=== PATIENT | female | born 1960 | race Caucasian/White ===

== ENCOUNTER → 2023-05-20 | Outpatient (CLI) | payer OTHER, SELFPAY ==
--- NOTE | 2023-05-20 11:35 | RAD_ITS ---
INDICATION: KIDNEY STONE EXAMINATION/TECHNIQUE: X-RAY - XR Abdomen 1 View COMPARISON: None FINDINGS: BOWEL GAS PATTERN: Non-obstructive. No bowel or stomach distention. FREE AIR: Not assessed on a single supine view. ORGANOMEGALY: Not seen. CALCIFICATIONS: Several faint calcifications are projecting over the contour of the RIGHT kidney with largest measuring approximately 4.5 cm. There is significant obscuring bowel gas. No calcifications in the pelvis. LOWER CHEST: No acute pathology. BONES AND SOFT TISSUES: No acute pathology. RAD/Abdomen Single View IMPRESSION: 1. Non-obstructive bowel gas pattern. 2. Significant obscuring bowel gas. 3. Several small calcifications are projecting over the region of the RIGHT renal contour with largest measuring approximately 4.5 cm. Electronically Signed: Adi Hernández MD at 21:27 EST ,
== END | disposition home or self-care (01) ==
LOC: RAD 11:27
PROVIDERS: PCP Nurse Practitioner Primary Care; Referring Provider Nurse Practitioner; Visit Provider Nurse Practitioner
DX: N20.0 Calculus of kidney (principal)
CPT/HCPCS: 74018

== ENCOUNTER 2023-06-10 05:44 | Day surgery (SDC) | payer OTHER, SELFPAY ==
--- NOTE | 2023-06-07 07:59 | EKG12_ITS ---
Test Reason : PREOP Blood Pressure : / mmHG Vent. Rate : 057 BPM Atrial Rate : 057 BPM P-R Int : 140 ms QRS Dur : 090 ms QT Int : 408 ms P-R-T Axes : 036 021 012 degrees QTc Int : 397 ms Sinus bradycardia Otherwise normal ECG Confirmed by Bruce Arreola ([id number]), features editor ERNESTO MANUEL ([id number]) on 06/08/2023 7:17:16 AM Referred By: Carlita Mascorro Confirmed By:Bruce Arreola
[2023-06-07 10:26] LABS: Anion Gap 6 (5-15); BUN 18 mg/dL (7-18); BUN/Creat Ratio 20.4 RATIO (10-20); Calcium,Total 9.4 mg/dL (8.5-10.1); Chloride 106 mmol/L (98-107); Creatinine, Serum 0.88 mg/dL (0.55-1.02); EST Glomerular Filtration Rate 69 mL/min (>60); Est Glom Filt Rate - Afr Amer 84 mL/min (>60); Glucose 73 mg/dL (74-106); Potassium 3.8 mmol/L (3.5-5.1); Sodium Level 141 mmol/L (136-145)
[2023-06-10] VITALS (9 sets, daily range): BP systolic 118–162; BP diastolic 58–87; PULSE 56–72; RESP 14–18; TEMP 36.2–36.8; O2SAT 98–100; BMI 32.4
--- OUTSIDE RECORDS SUMMARY | 2023-06-10 05:48 | XMS RPT_ITS | CCD ---
Author Name Unknown Address [address] [place] [address] Organization [facility] Care Team Providers Care Hydro Sprayer Operator Name Role Phone NEFTALI GROVES, SHANTA Primary Care Physician [phone] NEFTALI FORM PRESS OPERATOR-HEATING ENGINEER, SHANTA Attending Unavailabl e BALTES FORM PRESS OPERATOR-HEATING ENGINEER, SHANTA Primary Care Unavailabl e BALTES FORM PRESS OPERATOR-HEATING ENGINEER, SHANTA Attending Unavailabl e BALTES FORM PRESS OPERATOR-HEATING ENGINEER, SHANTA Primary Care Unavailabl e BALTES FORM PRESS OPERATOR-HEATING ENGINEER, SHANTA Primary Care Unavailabl e BALTES FORM PRESS OPERATOR-HEATING ENGINEER, SHANTA Attending Unavailabl e BALTES FORM PRESS OPERATOR-HEATING ENGINEER, SHANTA Primary Care Unavailabl e BALTES FORM PRESS OPERATOR-HEATING ENGINEER, SHANTA Attending Unavailabl e BALTES FORM PRESS OPERATOR-HEATING ENGINEER, SHANTA Primary Care Unavailabl e MELANI HERRERA, GAETANO Massey Attending Unavail able BALTES FORM PRESS OPERATOR-HEATING ENGINEER, SHANTA Attending Unavailabl e BALTES FORM PRESS OPERATOR-HEATING ENGINEER, SHANTA Primary Care Unavailabl e Allergies Allergy Classification Reported Allergen(s) Allergy Type Date of Onset Reaction(s) Facility (1 source) OTHER; Translations: [OTHER] Propensity to adverse reactions (disorder) 10-10-200 1 [facility] (8 sources) Chocolate Food allergy Unknown [facility] (8 sources) Milk Products Food allergy Unknown [facility] Medications Current Medications Medication Drug Class(es) Dates Sig (Normalized) Sig (Original) Soumya 24 Hour Allergy (6 sources) Start: 05-14-19 23 take 1 tablet by mouth once daily as needed Soumya 24 Hour Allergy 1 tab(s), Oral, qDay, PRN allergies, 0 Refill(s) Start Date: 05/14/22 Status: Ordered Zyrtec (8 sources) Histamine-1 Receptor Antagonist Start: 12-26-19 ZyrTEC Dose : 10 mg =, qDay, 0 Refill(s) Start Date: 12/25/16 Status: Ordered Flonase 50 mcg/inh nasal spray (1 source) Start: 12-26-19 take 1 dose nasal route once daily in the morning Flonase 50 mcg/inh nasal spray Dose = 2 spray(s), Nostril, each, qAM, 0 Refill(s) Start Date: 12/25/16 Status: Ordered fluticasone propionate 0.05 mg/actuat metered dose nasal spray (7 sources) Corticosteroid Start: 12-26-19 take 1 dose nasal route once daily in the morning Flonase 50 mcg/inh nasal spray Dose = 2 spray(s), Nostril, each, qAM, 0 Refill(s) Start Date: 12/25/16 Status: Ordered hydroCHLOROthiazide 25 mg oral tablet (8 sources) Thiazide Diuretic Start: 04-07-19 End: 05-22-19 hydroCHLOROthiazide 25 mg oral tablet Dose : 25 mg = 1 tab(s), Oral, qDay, # 90 tab(s), 3 Refill(s), Pharmacy: [id number], Hypertension, 155, cm, 04/22/23 9:33:00 EST, Height, kg, 04/22/23 9:33:00 EST, Dosing Weight Start Date: 04/22/23 Stop Date: 05/22/23 Status: Ordered Problems Problem Classification Problem Date Documented Date Episodic/Chronic Abdominal pain (1 source) Epigastric pain; Translations: [Epigastric pain] Onset: 04-21-2023 Episodic Disorders of lipid metabolism (8 sources) Mixed hyperlipidemia 05-01-2019 Chronic Essential hypertension (10 sources) Hypertensive disorder; Translations: [Essential (primary) hypertension] Onset: 04-22-2023 12-25-2016 Chronic Fluid and electrolyte disorders (8 sources) Hypokalemia 12-25-2016 Episodic Results Test Name Value Interpretation Reference Range Facil ity Vital Signs Date Time Vital Sign Value Performing Clinician Faci lity 04-21-2023 16:15-0500 Diastolic Blood Pressure Non-Invasive 75 mm[Hg] GAETANO POLO MD [facility] 04-21-2023 16:15-0500 Heart rate 54 /min GAETANO POLO MD [facility] 04-21-2023 16:15-0500 Respiratory rate 20 /min GAETANO POLO MD [facility] 04-21-2023 16:15-0500 Systolic Blood Pressure Non-Invasive 120 mm[Hg] GAETANO POLO MD [facility] 04-21-2023 15:10-0500 Diastolic Blood Pressure Non-Invasive 82 mm[Hg] GAETANO POLO MD [facility] 04-21-2023 15:10-0500 Systolic Blood Pressure Non-Invasive 158 mm[Hg] GAETANO POLO MD [facility] 04-21-2023 15:03-0500 Diastolic Blood Pressure Non-Invasive 56 mm[Hg] GAETANO POLO MD [facility] 04-21-2023 15:03-0500 Heart rate 53 /min GAETANO POLO MD [facility] 04-21-2023 15:03-0500 Respiratory rate 18 /min GAETANO POLO MD [facility] 04-21-2023 15:03-0500 Systolic Blood Pressure Non-Invasive 173 mm[Hg] GAETANO POLO MD [facility] 04-21-2023 14:38-0500 Body height 152.4 cm GAETANO POLO MD [facility] 04-21-2023 14:38-0500 Body temperature 98.78 [degF] GAETANO POLO MD [facility] 04-21-2023 14:38-0500 Body weight 84.1 kg GAETANO POLO MD [facility] 04-21-2023 14:38-0500 Heart rate 60 /min GAETANO POLO MD [facility] 04-21-2023 14:38-0500 Respiratory rate 18 /min GAETANO POLO MD [facility] Encounters Encounter Date Encounter Type Care Provider Facility Start: 05-18-2023 End: 05-19-2023 ambulatory SHANTA LINDSAY FORM PRESS OPERATOR-HEATING ENGINEER Facility:B Start: 05-18-2023 End: 05-18-2023 Patient encounter procedure SHANTA LINDSAY FORM PRESS OPERATOR-HEATING ENGINEER [facility] Start: 04-26-2023 End: 04-27-2023 ambulatory SHANTA NEFTALI FORM PRESS OPERATOR-HEATING ENGINEER Facility:[facility] Start: 04-26-2023 End: 04-26-2023 Patient encounter procedure SHANTA NEFTALI FORM PRESS OPERATOR-HEATING ENGINEER [facility] Start: 04-22-2023 End: 04-27-2023 ambulatory SHANTA BALTES FORM PRESS OPERATOR-HEATING ENGINEER Facility:[facility] Start: 04-22-2023 End: 04-26-2023 Outreach Lab SHANTA BALRATNA FORM PRESS OPERATOR-HEATING ENGINEER [facility] Start: 04-21-2023 End: 04-21-2023 Emergency department patient visit SHANTA LINDSAY FORM PRESS OPERATOR-HEATING ENGINEER Facility:[facility] Start: 04-21-2023 End: 04-21-2023 Emergency department patient visit GAETANO POLO MD [facility] Start: 04-16-2023 ambulatory SHANTA LINDSAY FORM PRESS OPERATOR-HEATING ENGINEER Fa cility:B Start: 04-16-2023 End: 04-20-2023 Outreach Lab SHANTA LINDSAY FORM PRESS OPERATOR-HEATING ENGINEER [facility] Start: 04-16-2023 ambulatory SHANTA LINDSAY FORM PRESS OPERATOR-HEATING ENGINEER Fa cility:B Start: 04-16-2023 Encounter for genera l adult medical examination without abnormal findings SHANTA LINDSAY FORM PRESS OPERATOR-HEATING ENGINEER Facility:[facility] Start: 04-16-2023 End: 04-20-2023 Outreach Lab SHANTA LINDSAY FORM PRESS OPERATOR-HEATING ENGINEER [facility] Start: 04-08-2022 End: 04-08-2022 Patient encounter procedure SHANTA LINDSAY FORM PRESS OPERATOR-HEATING ENGINEER [facility] Start: 05-07-2021 End: 05-07-2021 Patient encounter procedure SHANTA LINDSAY FORM PRESS OPERATOR-HEATING ENGINEER [facility] Start: 02-15-2018 End: 02-16-2018 Patient encounter procedure [facility] Procedures Date Procedure Procedure Detail Performing Clinician Start: 12-25-2016 Colonoscopy SHANTA Olea FORM PRESS OPERATOR-HEATING ENGINEER Immunizations Immunization Date Immunization Notes Care Provider Fa cility 01-08-2020 influenza virus vaccine, unspecified formulation SHANTA LINDSAY FORM PRESS OPERATOR-HEATING ENGINEER [facility] 02-01-2019 influenza virus vaccine, unspecified formulation SHANTA LINDSAY FORM PRESS OPERATOR-HEATING ENGINEER [facility] 11-02-2011 tetanus toxoid, redu noah diphtheria toxoid, and acellular pertussis vaccine, adsorbed SHANTA LINDSAY FORM PRESS OPERATOR-HEATING ENGINEER [facility] Payers Date Payer Category Payer Unknown [id number] 1960 Unknown [id number] [id number] [id number] 1960 Unknown [id number] 2.16.8 [id number] 1960 Unknown [id number] 2.16.8 [id number] 1960 Unknown [id number] 2.16.8 [id number] 1960 Unknown [id number] 2.16.8 [id number] 1960 Unknown [id number] 2.16.8 [id number] Social History Date Type Detail Facility Start: 05-01-2019 Never smoked t obacco (finding) [facility] Sex Assigned At Female [facility] Functional Status Date Assessment Result Facility 04-21-2023 Functional Status Independent [facility] 04-21-2023 Functional Status Room check performed [facility] Mental Status Date Assessment Result Facility 04-21-2023 Mental Status Orientation Oriented x 4 [facility] 04-21-2023 Mental Status [facility] Clinical Note 05-18-2023 Note Date & Type Note Facility 05-18-2023 Note ORIGINAL EXAMINATION: 05/18/2023 11:48 am TECHNIQUE: The patient received an intravenous injection of 5.1 mCi of Tc-99m mebrofenin (Choletec). Sequential planar images of the upper abdomen were then acquired over the next 60 minutes. An intravenous infusion of the cholecystokinin (CCK) analogue, Sincalide was then administered followed by an additional period of imaging. Computer quantification of gallbladder emptying was performed. COMPARISON: 04/26/2023 HISTORY: ORDERING SYSTEM PROVIDED HISTORY: Reason for Exam: Positive Song sign, right upper quadrant pain FINDINGS: There is prompt accumulation of activity within the liver and normal subsequent excretion via the biliary ductal system into the small bowel. The gallbladder first visualizes at about 30 minutes after radiopharmaceutical injection and progressively fills. After stimulation, there is further anterograde transit of radiotracer activity into the small bowel. The gallbladder ejection fraction is calculated to be 22 % (normal above 35%). IMPRESSION: 1. No evidence of acute cholecystitis. 2. Reduced gallbladder ejection fraction which can be seen with chronic cholecystitis. 3. Normal hepatic function. I have personally reviewed the images of this examination and agree with the resident's findings and interpretation. Interpreted by: Yohannes Garza DO Preliminary Report By: Fer Tadeo Electronically signed By Yohannes Garza DO Dictated Date: 05/18/2023 1:38:10 PM Prelim Date: 05/18/2023 2:16:49 PM Sign Date: 05/18/2023 2:16:49 PM Ordering Provider: SHANTA LINDSAY [facility] Discharge instructions 04-21-2023 Note Date & Type Note Facility 04-21-2023 Hospital Discharg e instructions Patient Education 04/21/2023 16:12:01 Abdominal Pain, Unknown Cause, Male (Child) Abdominal Pain with Unknown Cause, Male (Child) Abdominal (stomach) pain is common in children. But children often don't complain of pain because they don't have the words to describe what is wrong and they have trouble pinpointing where it hurts. Often, they just feel bad, or don't want to eat. This can make abdominal pain hard to diagnose in young children. Also, abdominal symptoms are associated with many problems. Most of the time, the cause of abdominal pain in children is not serious and will go away. Over the next few days, abdominal pain may come and go or be continuous. It may be hard to decide whether a child has pain or is feeling something else. Other symptoms that may occur include nausea and vomiting, constipation, diarrhea, or fever. Sometimes it can be hard to tell whether a child feels nauseous because he or she just feels bad and doesn't associate that feeling with nausea. The child may constantly touch his or her stomach or indicate pain when the stomach is touched. Abdominal pain may continue even when being treated correctly. Sometimes the cause can become clearer over the next few days and may require other treatment. More tests or medicines may be needed. Home care The healthcare provider may prescribe medicine for pain and symptoms of infection. Follow the instructions for giving these medicines to your child. General care Comfort your child as needed, and give emotional support. Try to find positions that ease your child's discomfort. A small pillow placed on the abdomen may help provide pain relief. Distraction may also help. Some children may be soothed by music or reading. Relaxation techniques and behavioral therapy can be helpful if the pain becomes chronic. Lying down with a warm washcloth on the stomach may help improve symptoms. Have your child sit on the toilet regularly. Don't give medicine for abdominal pain or cramps unless instructed by your healthcare provider. Diet Don't force your child to eat, especially if they are having pain, vomiting, or diarrhea. Think of what would make you feel better or worse, the same probably goes for your child. Water is important to prevent dehydration. Soup, popsicles or oral rehydration solution can help. Give liquids a small amount at a time. Don't let your child guzzle them down. Don't give your child fatty, greasy, spicy, or fried foods Don't give your child dairy products if he has diarrhea. They could make diarrhea worse. Don't give your child high-fiber foods while the pain continues. Don't feed your child large amounts at a time, even if he or she is hungry. Wait a few minutes between bites and offer more if tolerated. Follow-up care Follow up with your child's healthcare provider, or as advised. If tests or studies were done, they will be reviewed by your healthcare provider. You will be told about any new findings that may affect your child s care. Special notes to parents Keep a record of symptoms such as vomiting, diarrhea, or fever. This may help your healthcare provider make a diagnosis. Call 911 Call 911 if any of these occur: Trouble breathing Trouble arousing Fainting or loss of consciousness Rapid heart rate Seizure When to seek medical advice Call your child's healthcare provider right away if any of these occur: Fever (see Fever and children, below) Continuing symptoms such as severe abdominal pain, bleeding, painful or bloody urination, nausea and vomiting, constipation, or diarrhea Abdominal swelling Painful, swollen, or inflamed scrotum If your child can't keep down water or clear liquids, he or she is at risk of dehydration and needs medical attention right away. Severe pain lasting more than 1 hour Constant pain lasting more than 2 hours Crampy, intermittent pain lasting more than 24 hours Pain in the lower right side of the abdomen Your child starts acting very sick Fever and children Always use a digital thermometer to check your child s temperature. Never use a mercury thermometer. For infants and toddlers, be sure to use a rectal thermometer correctly. A rectal thermometer may accidentally poke a hole in (perforate) the rectum. It may also pass on germs from the stool. Always follow the product maker s directions for proper use. If you don t feel comfortable taking a rectal temperature, use another method. When you talk to your child s healthcare provider, tell him or her which method you used to take your child s temperature. Here are guidelines for fever temperature. Ear temperatures aren t accurate before 6 months of age. Don t take an oral temperature until your child is at least 4 years old. under 3 months old: Ask your child s healthcare provider how you should take the temperature. Rectal or forehead (temporal artery) temperature of 100.4 F (38 C) or higher, or as directed by the provider Armpit temperature of 99 F (37.2 C) or higher, or as directed by the provider Child age 3 to 36 months: Rectal, forehead (temporal artery), or ear temperature of 102 F (38.9 C) or higher, or as directed by the provider Armpit temperature of 101 F (38.3 C) or higher, or as directed by the provider Child of any age: Repeated temperature of 104 F (40 C) or higher, or as directed by the provider Fever that lasts more than 24 hours in a child under 2 years old. Or a fever that lasts for 3 days in a child 2 years or older. [id number] [employer]. [address] [place] [address], [place] [address]. All rights reserved. This information is not intended as a substitute for professional medical care. Always follow your healthcare professional's instructions. 04/21/2023 16:03:24 Epigastric Pain (Uncertain Cause) Epigastric Pain (Uncertain Cause) Epigastric pain is pain in the upper abdomen. It can be a sign of disease. Common causes include: Acid reflux (stomach acid flowing up into the esophagus) Gastritis (irritation of the stomach lining) Most often this is from aspirin or NSAID medicines such as ibuprofen, bacteria called H. pylori, or frequent alcohol use. Peptic ulcer disease Inflammation of the pancreas Gallstone Infection in the gallbladder Pain may be dull or burning. It may spread upward to the chest or to the back. There may be other symptoms such as belching, bloating, cramps or hunger pains. There may be weight loss or poor appetite, nausea or vomiting. Since the cause of your pain is not certain yet,you may need more tests. Sometimes the doctor will treat you for the most likely condition to see if there is improvement before doing more tests. Home care Medicines Antacids help neutralize the normal acids in your stomach.If you don t like the liquid, you can try a chewable one. You may find one works better than another for you. Overuse can cause diarrhea or constipation. Acid blockers (H2 blockers) decrease acid production. Examples are cimetidine, famotidine, and ranitidine. Acid inhibitors (PPIs) decrease acid production in a different way than the blockers. You may find they work better, but can take a little longer to take effect. Examples are omeprazole, lansoprazole, pantoprazole, rabeprazole, and esomeprazole. Many of these are available [id number] or available as generics. Take an antacid 30 to 60 minutes after eating and at bedtime, but not at the same time as an acid kaci. Try not to take NSAIDs such as ibuprofen. Aspirin may also cause problems, but if taking it for your heart or other medical reasons, talk to your doctor before stopping it; you don't want to cause a worse problem, like a heart attack or stroke. Diet If certain foods seem to cause your pain, try not to eat them. Certain foods can worsen symptoms of gastritis. Limit or avoid fatty, fried, and spicy foods, as well as coffee, chocolate, mint, and foods with high acid content such as tomatoes and citrus fruit and juices (orange, grapefruit, lemon). Eat slowly and chew food well before swallowing. Symptoms of gastritis can be worsened by certain foods. Don't drink alcohol. It can irritate the stomach. Don't consume caffeine, or use tobacco. These can delay healing and worsen your problem. Try eating smaller meals with snacks in between. Keep an empty stomach for 2 to 3 hours before lying down. Prop the head of the bed up if you have overnight symptoms. This helps acid clear from your esophagus. Follow-up care Follow up with your healthcare provider or as advised. When to seek medical advice Call your healthcare provider right away if any of the following occur: Stomach pain worsens or moves to the right lower part of the abdomen Chest pain appears, or if it worsens or spreads to the chest, back, neck, shoulder, or arm Frequent vomiting (can t keep down liquids) Blood in the stool or vomit (red or black color) Feeling weak or dizzy, fainting, or having trouble breathing Fever of 100.4 F (38 C) or higher, or as directed by your healthcare provider Abdominal swelling [id number] [employer] [address] [place] [address]. All rights reserved. This information is not intended as a substitute for professional medical care. Always follow your healthcare professional's instructions. Follow Up Care 04/21/2023 14:30:33 With:SHANTA LINDSAY Address: [address] [place] [phone] When:2-4 days [facility] Clinical Note 04-21-2023 Note Date & Type Note Facility 04-21-2023 Note Discharge Instructions Thank you for allowing [facility] to assist you with your healthcare needs. The following is important discharge information regarding your hospital visit. Diagnosis from Today's Visit Abdominal pain Epigastric pain What to Do Next Instructions from Your Care Team You were started on a medication for acid reflux today. Your labs were normal in the emergency department. You should discuss with your family doctor obtaining an outpatient ultrasound of your gallbladder if your symptoms continue. No qualifying data available. Post Acute Orders No qualifying data available. You Need to Schedule the Following Appointments Follow Up with SHANTA LINDSAY When Within 2-4 days Where: [address] [place] [address] [place] [phone]- [phone] Allergies Chocolate (Unknown) Milk Products (Unknown) Medications Please ask your primary doctor or pharmacist before taking any other medication not listed, including over the counter drugs, herbal medications, vitamins and or supplements as they may interact with your home medications. What How Much When Why Instructions Last Dose New pantoprazole (Protonix 20 mg oral enteric coated tablet) 1 tab(s) by mouth Once a day Printed Prescription Unchanged cetirizine (ZyrTEC) 10 Milligram Once a day Unchanged cholecalciferol (Vitamin D3) 2,000 unit(s) by mouth Every day Unchanged fexofenadine (Soumya 24 Hour Allergy) 1 tab(s) by mouth Once a day as needed for allergies Unchanged fluticasone nasal (Flonase 50 mcg/ inh nasal spray) 2 spray(s) each nostril Once a day (in the morning) Unchanged hydroCHLOROthiazide (hydroCHLOROthiazide 25 mg oral tablet) 1 tab(s) by mouth Once a day Hypertension Duration: 30 Days Unchanged multivitamin (Multivitamin) 1 tab(s) by mouth Every day Unchanged potassium citrate (potassium citrate 10 mEq oral tablet, extended release) 1 tab(s) by mouth Every day History of kidney stones Unchanged zinc gluconate (zinc (as gluconate) 50 mg oral tablet) 1 tab(s) by mouth Every other day Please take this list to your next doctor s visit. Bring all medications you take, including over the counter medications, herbals and other supplements with you to your doctor s visit. Patients and families are reminded to discard old lists and to update any records with all medication providers or retail pharmacies. Medication Leaflets pantoprazole (oral/injection) (brady LEO pra zoledis) First-Pantoprazole, Protonix, Protonix IV What is the most important information I should know about pantoprazole? Pantoprazole can cause kidney problems or new or worsening symptoms of lupus. Tell your doctor if you have: pain in your side or lower back, painful urination, blood or pus in your urine, joint pain or a skin rash on your cheeks or arms that worsens in sunlight. This medicines can cause diarrhea. Tell your doctor if you have diarrhea that is watery or bloody. You may be more likely to have a broken bone while using pantoprazole. Talk with your doctor about ways to keep your bones healthy. What is pantoprazole? Pantoprazole is used to promote healing of erosive esophagitis (damage to your esophagus caused by stomach acid) in adults and children who are at least 5 years old. Pantoprazole is also used in adults to treat the symptoms of gastroesophageal reflux disease (GERD) and other conditions involving excessive stomach acid such as Bernie-Ernst syndrome. Pantoprazole may also be used for purposes not listed in this medication guide. What should I discuss with my healthcare provider before using pantoprazole? You should not use pantoprazole if you are allergic to it, or if you have: breathing problems; or you are allergic to any other stomach acid medicine such as lansoprazole, rabeprazole, esomeprazole, omeprazole, and others. Some drugs should not be used with pantoprazole. Your treatment plan may change if you also use any medication that contains rilpivirine. Tell your doctor if you have or have ever had: a zinc deficiency; an electrolyte imbalance (such as low blood levels of potassium, calcium or magnesium); lupus; or liver or kidney disease. You may be more likely to have a broken bone while using pantoprazole. Talk with your doctor about ways to keep your bones healthy. Pantoprazole may harm an unborn baby. Tell your doctor if you are or plan to become . Ask a doctor if it is safe to breastfeed while using this medicine. How should I use pantoprazole? Follow all directions on your prescription label and read all medication guides or instruction sheets. Never use pantoprazole in larger amounts, or for longer than prescribed. Do not change your dose or stop using this medication without your doctor's advice. Avoid medication errors by using exactly as directed on the label, or as prescribed by your doctor. Pantoprazole is taken by mouth or given as an infusion into a vein. Pantoprazole tablets are taken by mouth, with or without food. Pantoprazole oral granules should be taken 30 minutes before a meal. Swallow the tablet whole and do not crush, chew, or break it. Read and carefully follow instructions for mixing and taking the oral granules. The oral granules can also be given through a nasogastric tube. Ask your doctor or pharmacist if you do not understand these instructions. Shake the oral suspension (liquid). Measure a dose with the supplied measuring device (not a kitchen spoon). Use this medicine for the full prescribed length of time, even if your symptoms quickly improve. You may use antacids if needed while you are taking pantoprazole tablets. Call your doctor if your symptoms do not improve, or if they get worse after using the medicine for the number of days prescribed. You may need medical tests. This medicine can affect the results of certain medical tests. Tell any doctor or laboratory staff that you are using pantoprazole. This medicine can cause diarrhea. Tell your doctor if you have diarrhea that is watery or bloody. Store pantoprazole tablet and oral granules at room temperature away from moisture and heat. Store the oral suspension tightly closed in a refrigerator. Do not freeze and protect from light. Throw the medicine away after 30 days, even if there is still medicine left inside. What happens if I miss a dose? Use the medicine as soon as you can, but skip the missed dose if it is almost time for your next dose. Do not use two doses at one time. What happens if I overdose? Seek emergency medical attention or call the Poison Help line at . What should I avoid while using pantoprazole? Follow your doctor's instructions about any restrictions on food, beverages, or activity. Avoid getting pantoprazole oral suspension in your eyes. If contact does occur, rinse with water. What are the possible side effects of pantoprazole? Get emergency medical help if you have signs of an allergic reaction (hives, difficult breathing, swelling in your face or throat) or a severe skin reaction (fever, sore throat, burning eyes, skin pain, red or purple skin rash with blistering and peeling). Seek medical treatment if you have a serious drug reaction that can affect many parts of your body. Symptoms may include skin rash, fever, swollen glands, muscle aches, severe weakness, unusual bruising, or yellowing of your skin or eyes. Call your doctor at once if you have: severe stomach pain, diarrhea that is watery or bloody; nausea, vomiting, weight loss; sudden pain or trouble moving your hip, wrist, or back; pain, swelling, burning, or irritation around the IV needle; pain in your side or lower back, painful urination, blood or pus in your urine; signs of an electrolyte imbalance--increased thirst or urination, constipation, muscle weakness, leg cramps, numbness or tingling, feeling jittery, fluttering in your chest; new or worsening symptoms of lupus--joint pain, and a skin rash on your cheeks or arms that worsens in sunlight; or vitamin B12 deficiency--shortness of breath, feeling lightheaded, irregular heartbeats, muscle weakness, pale skin, tiredness, mood changes, numbness or tingling in your legs or arms. Long-term use of pantoprazole may increase your risk of serious side effects including stomach polyps. Talk with your doctor about these risks. Common side effects may include: headache, dizziness; stomach pain, gas, nausea, vomiting, diarrhea; joint pain; or fever, rash, or cold symptoms such as stuffy nose, sneezing, sore throat. This is not a complete list of side effects and others may occur. Call your doctor for medical advice about side effects. You may report side effects to FDA at 6-669-YDM-3589. What other drugs will affect pantoprazole? Tell your doctor about all your other medicines, especially: digoxin; methotrexate; or a diuretic or 'water pill'. This list is not complete. Other drugs may affect pantoprazole, including prescription and wmty-gad-mjzamuz medicines, vitamins, and herbal products. Not all possible drug interactions are listed here. Where can I get more information? Your doctor or pharmacist can provide more information about pantoprazole. Remember, keep this and all other medicines out of the reach of children, never share your medicines with others, and use this medication only for the indication prescribed. Every effort has been made to ensure that the information provided by [employer]. ('[employer]') is accurate, up-to-date, and complete, but no guarantee is made to that effect. Drug information contained herein may be time sensitive. [employer] information has been compiled for use by healthcare practitioners and consumers in the [place] and therefore [employer] does not warrant that uses outside of the [place] are appropriate, unless specifically indicated otherwise. [employer]'s drug information does not endorse drugs, diagnose patients or recommend therapy. [employer] drug information is an informational resource designed to assist licensed healthcare practitioners in caring for their patients and/or to serve consumers viewing this service as a supplement to, and not a substitute for, the expertise, skill, knowledge and judgment of healthcare practitioners. The absence of a warning for a given drug or drug combination in no way should be construed to indicate that the drug or drug combination is safe, effective or appropriate for any given patient. [facility] does not assume any responsibility for any aspect of healthcare administered with the aid of information [facility] provides. The information contained herein is not intended to cover all possible uses, directions, precautions, warnings, drug interactions, allergic reactions, or adverse effects. If you have questions about the drugs you are taking, check with your doctor, nurse or pharmacist. Copyright 0353-6025 [employer]. Version: 22.. Revision Date: 03/10/2023. Education Materials Epigastric Pain (Uncertain Cause) Epigastric pain is pain in the upper abdomen. It can be a sign of disease. Common causes include: Acid reflux (stomach acid flowing up into the esophagus) Gastritis (irritation of the stomach lining) Most often this is from aspirin or NSAID medicines such as ibuprofen, bacteria called H. pylori, or frequent alcohol use. Peptic ulcer disease Inflammation of the pancreas Gallstone Infection in the gallbladder Pain may be dull or burning. It may spread upward to the chest or to the back. There may be other symptoms such as belching, bloating, cramps or hunger pains. There may be weight loss or poor appetite, nausea or vomiting. Since the cause of your pain is not certain yet,you may need more tests. Sometimes the doctor will treat you for the most likely condition to see if there is improvement before doing more tests. Home care Medicines Antacids help neutralize the normal acids in your stomach.If you don t like the liquid, you can try a chewable one. You may find one works better than another for you. Overuse can cause diarrhea or constipation. Acid blockers (H2 blockers) decrease acid production. Examples are cimetidine, famotidine, and ranitidine. Acid inhibitors (PPIs) decrease acid production in a different way than the blockers. You may find they work better, but can take a little longer to take effect. Examples are omeprazole, lansoprazole, pantoprazole, rabeprazole, and esomeprazole. Many of these are available [id number] or available as generics. Take an antacid 30 to 60 minutes after eating and at bedtime, but not at the same time as an acid kaci. Try not to take NSAIDs such as ibuprofen. Aspirin may also cause problems, but if taking it for your heart or other medical reasons, talk to your doctor before stopping it; you don't want to cause a worse problem, like a heart attack or stroke. Diet If certain foods seem to cause your pain, try not to eat them. Certain foods can worsen symptoms of gastritis. Limit or avoid fatty, fried, and spicy foods, as well as coffee, chocolate, mint, and foods with high acid content such as tomatoes and citrus fruit and juices (orange, grapefruit, lemon). Eat slowly and chew food well before swallowing. Symptoms of gastritis can be worsened by certain foods. Don't drink alcohol. It can irritate the stomach. Don't consume caffeine, or use tobacco. These can delay healing and worsen your problem. Try eating smaller meals with snacks in between. Keep an empty stomach for 2 to 3 hours before lying down. Prop the head of the bed up if you have overnight symptoms. This helps acid clear from your esophagus. Follow-up care Follow up with your healthcare provider or as advised. When to seek medical advice Call your healthcare provider right away if any of the following occur: Stomach pain worsens or moves to the right lower part of the abdomen Chest pain appears, or if it worsens or spreads to the chest, back, neck, shoulder, or arm Frequent vomiting (can t keep down liquids) Blood in the stool or vomit (red or black color) Feeling weak or dizzy, fainting, or having trouble breathing Fever of 100.4 F (38 C) or higher, or as directed by your healthcare provider Abdominal swelling [id number] [employer]. [address] [place] [address]. All rights reserved. This information is not intended as a substitute for professional medical care. Always follow your healthcare professional's instructions. Additional Information VACCINATE! IT SAVES LIVES! Members of the community who have not yet received the COVID-19 vaccine and would like to receive it can visit one of [facility] vaccine clinics. There are many vaccine clinic locations within the [facility]. For locations and available times, please visit www.gettheshot.coronavirus.[place].gov/. It is important to note that some COVID mobile vaccine clinics are held outdoors and may be canceled in rainy or stormy conditions. To learn more about pediatric vaccinations (ages 5-11), we invite you to visit the [facility] webpage. https://www.[email or web address].org/pages/201 [email or web address]-Bccqv-Kjxaonzqunb-Adgsqfgums-Koqiy-Pxo stions.html To learn more about the COVID-19 vaccine, we invite you to visit the CDC website for a list of frequently asked questions. https://www.cdc.gov/coronavirus/2019-nco v/vaccines/faq.html [facility] [employer] [facility] Patient Portal Access Instructions: Stay connected with your healthcare team and access your personal medical information anytime with the [facility] Patient Portal. If you would like a full copy of your medical records please contact the [facility] Medical Records Department Wednesday through Wednesday between 8a.m. and 4:30p.m. Please follow the directions below to access the portal: 1.Access the email account you provided upon registration to the [facility].2.Look for an invitation email from [facility].3.Open the email and access the invitation link: Accept Invitation to [facility].Fill in the required angulo to create your account. Sign into [email or web address] with your username and password that you created in the above steps to stay up to date. You can then view a summary of results, a summary of your visits, and the ability to download your summaries to your computer or send the information securely to a physician. Remember that your healthcare information is confidential, so carefully consider who you will allow to register on the [facility] Patient Portal for access to your information. You can also access the [facility] Patient Portal on the [employer]. Simply click on Health Records under Health Data and then click on the [employer] logo. HOW TO SAFELY DISPOSE OF PRESCRIPTION MEDICATIONS Please use one of the following methods to safely dispose of your unused medications. 1.Use a drug disposal kit: the drug disposal pouch allows you to safely discard your old and unused drugs. Ask your nurse to give you one when you are discharged.2.Visit a local take-back location: Many local pharmacies and police departments have programs that collect old and unwanted prescription drugs. Call your local pharmacy or go to http://Chictini.ly/5Q8Bx3y to find one close to you.3.Make use of household items: Use cat litter or old coffee grounds to dispose medications if other options are not available. Mix your drugs with these household products, seal them in an airtight container and throw it into the garbage. Call [facility]: [phone] to be sure your drugs can be disposed of in this way. Some medicines may require a different approach.4.Never flush your medications down the toilet. IF YOU HAVE BEEN PRESCRIBED AN OPIOIDS FOR PAIN If you have been prescribed an opioid (such as hydrocodone, oxycodone or morphine), it is critical to understand the possible side effects and risks of opioid pain medications. Even when taken as directed, opioids can have several side effects including: Tolerance, meaning you might need to take more of a medication for the same pain relief. Nausea, vomiting and/or constipation. Sleepiness, dizziness, dry mouth, confusion, depression or itching. Physical dependence, meaning you have withdrawal symptoms when a medication is stopped ? this can develop within a few days. KNOW YOUR RESPONSIBILITIES It is important to know exactly how much and how often to take the opioid pain medications you are prescribed. Never take opioids in higher amounts or more often than prescribed. Do not combine opioids with alcohol or other drugs that cause drowsiness, such as benzodiazepines, also known as benzos, including diazepam and alprazolam, muscle relaxants or sleep aids. Never sell or share prescription opioids. This is illegal. Store opioids in a secure place and out of reach of others (including children, family, friends and visitors). The last page(s) of this document has been signed and retained as a CHART COPY Signatures Patient Education Materials Epigastric Pain (Uncertain Cause) Medication Leaflets pantoprazole (oral/injection) My discharge plan and instructions have been reviewed and explained to me and I,TAYLER VALADEZ understand my current condition and have read and understand these discharge instructions. I have received a written copy of the plan/instructions. If I have questions, I am aware that I should contact my doctor. Patient/Algorithm Developer Signature: Date/Time: Relationship to Patient: Witness Name/Signature: ____ Date/Time: [facility] Evaluation + Plan note Note Date & Type Note Facility Evaluation + Plan note Future Appointments Appointment Date:05/15/2021 10:30:00 AM Scheduled Provider:SHANTA LINDSAY Location[facility] Plan note Note Date & Type Note Facility Evaluation + Plan note Future Appointments Appointment Date:04/16/2022 11:00:00 AM Scheduled Provider:SHANTA LINDSAY Location:[facility] Appointment Type:[facility] Evaluation + Plan note Note Date & Type Note Facility Evaluation + Plan note Future Appointments Appointment Date:04/22/2023 09:30:00 AM Scheduled Provider:SHANTA LINDSAY Location:[facility] Hospital course Narrative Note Date & Type Note Facility Hospital course Narrative No data available for this section [facility] Hospital Discharge instructions Note Date & Type Note Facility Hospital Discharge instructions No data available for this section [facility] Progress note Note Date & Type Note Facility Progress note No data available for this section [facility] Summary Purpose Family History No Family History Records Found No data available for this section No data available for this section No data available for this section No data available for this section No data available for this section No data available for this section No Family History Records Found Advance Directives No Advanced Directives Records FoundNo Advanced Directives Records Found Additional Source Comments INFORMATION SOURCE (unrecogn ized section and content) DATE CREATED AUTHOR AUTHOR'S ORGANIZ ATION 05/19/[address] [facility] ([place]) Care Team (unrecognized sect ion and content) Care Team Personnel Name: SHANTA LINDSAY Position: P4 Advanced Practice Nurse Member Role: Primary Care Physician Address: Address: [address] [place] [id number]- Care Team Related Persons Name: TABATHA VALADEZ Patient Care team informatio n (unrecognized section and content) Care Team Personnel Name: SHANTA LINDSAY Position: P4 Advanced Signal Manager Member Role: Primary Care Physician Address: Address: [address] [place] [address]- Care Team Related Persons Name: TABATHA VALADEZ Care Team Personnel Name: SHANTA LINDSAY Position: P4 Advanced Signal Manager Member Role: Primary Care Physician Address: Address: [address] [place] [address]- Care Team Related Persons Name: TABATHA VALADEZ Care Team Personnel Name: SHANTA LINDSAY Position: P4 Advanced Signal Manager Member Role: Primary Care Physician Address: Address: [address] [place] [address]- Care Team Related Persons Name: TABATHA VALADEZ Care Team Personnel Name: SHANTA LINDSAY Position: P4 Advanced Signal Manager Member Role: Primary Care Physician Address: Address: [address] [place] [address]- Care Team Related Persons Name: TABATHA VALADEZ Care Team Personnel Name: SHANTA LINDSAY Position: P4 Advanced Signal Manager Member Role: Primary Care Physician Address: Address: [address] [place] [address]- Care Team Related Persons Name: TABATHA VALADEZ Care Team Personnel Name: SHANTA LINDSAY Position: P4 Advanced Signal Manager Member Role: Primary Care Physician Address: Address: [address] [place] [address]- Care Team Related Persons Name: TABATHA VALADEZ FOR RECORDS PERTAINING TO PATIENTS WHO ARE OR HAVE BEEN ENROLLED IN A CHEMICAL DEPENDENCY/SUBSTANCEABUSE PROGRAM, SOME INFORMATION MAY BE OMITTED. This clinical summary was aggregated from multiple sources. Caution should be exercised in using it in the provision of clinical care. This summary normalizes information from multiple sources, and as a consequence, information in this document may materially change the coding, format and clinical context of patient data. In addition, data may be omitted in some cases. CLINICAL DECISIONS SHOULD BE BASED ON THE PRIMARY CLINICAL RECORDS. [facility] [employer] [facility]. provides no warranty or guarantee of the accuracy or completeness of information in this document.
[2023-06-10] MEDS: Lactated Ringers 1,000 ML 15 ML IV ×2 (06:40→09:24)
--- NOTE | 2023-06-10 07:13 | HP.PCM_ITS ---
History and Physical Date of Admission: 06/10/23 Date of Service: 06/02/23 MR#: [id number] Acct: [id number] Name: TAYLER VALADEZ Rep #: [id number] : 1960 Provider: Dr. Carlita Mascorro MD Age/Sex: 62/F Location: [facility] Status: Signed Intake Vital Signs 06/01/2412:01 Height 5 ft 5 in Weight: 197 lb BMI 32.8 BP 162/104 H Blood Pressure Location Lt brachial Position Sitting Respiration 17 Pulse 66 Pulse Source Monitor Temp 97.3 F L Temp Source Temporal Pulse Oximetry (%) 99 Oxygen Delivery Method room air Intake Visit Reasons: GALLBLADDER Chief Complaint: gallbladder Is patient in pain?: Yes Allergies No Known Allergies Allergy (Verified 06/04/23 08:20) Medications hydrochlorothiazide 25 mg tablet 25 mg PO DAILY 06/02/23 [History Confirmed 06/04/23] potassium chloride 10 mEq capsule,extended release 10 meq PO BID 06/02/23 [History Confirmed 06/04/23] potassium citrate 10 mEq (1,080 mg) tablet,extended release 10 meq PO DAILY 06/02/23 [History Confirmed 06/04/23] pantoprazole 20 mg tablet,delayed release 20 mg PO DAILY 06/04/23 [History Con firmed 06/04/23] PFSH Medical History (Updated 06/04/23 @ 09:[address] Carlita Mascorro MD) Arthritis Back pain Chest pain Hemorrhoids History of renal disease Hypertension Loss of hearing Lymphedema Non-smoker Post-menopausal Wears contact lenses Wears glasses Wears hearing aid Surgical History (Updated 06/04/23 @ 08:31 by Sondra Farah) History of surgical removal of ganglion cyst Hx of colonoscopy Hx of lithotripsy Hx of sinus surgery Hx of tonsillectomy Hx of tubal ligation S/P ACL repair Social History (Updated 06/02/23 @ 13:01 by Isela Greenberg) Smoking Status: Never smoker alcohol intake: never substance use type: does not use HPI HPI HPI: 62-year-old female presents due to nausea right upper quadrant pain. Patient states she has had this for about 2 months states has been getting worse. Patient states looking back her first attack may have been about a year and a half ago. Patient had ultrasound showed gallstones normal wall, normal common bile duct. Patient also had a HIDA scan that showed ejection fraction of 22%. Patient has tried to stay away from fatty greasy foods. ROS General General: No weight change, appetite, fatigue, colon cancer or breast cancer HEENT HEENT: No difficulty swallowing, eye injury, eye surgery, swollen glands or hoarseness Endo Endocrine: No thyroid disease, diabetes mellitus, thyroid cancer, Hair loss, heat intolerance or cold intolerance Skin Skin: No rash or changing moles Musc Musculoskeletal: Yes arthritis; No back problems, rheumatoid arthritis, gout or joint pain Cardio Cardiovascular: No murmur, pacemaker, heart disease, atrial fibrillation, high blood pressure, heart attack, heart stent, palpitations, shortness of breat with exertion or chest pain Psych Psychiatric: No depression, anxiety or hearing voices Resp Respiratory: No shortness of breath, No sleep apnea, No cough, No COPD, No asthma, No emphysema and No wheezing Gastro Gastrointestinal: Yes abdominal pain, Yes nausea or vomiting, No diarrhea, Yes constipation, No blood in stool, No acid reflux, Yes hemorrhoids, No ulcers, Yes gallbladder problem and No black,tarry stools Robert Hematologic: No blood thinners, No blood disorders, No bleeding, No anemia and No blood clots Neuro Neurologic: No numbness and No tingling Exam Const General: cooperative, healthy appearing, comfortable and no acute distress [facility] Head: normocephalic and atraumatic Neck Neck: supple Resp Effort & Inspection: normal respiratory effort Cardio Rate: regular rate GI Inspection: non-distended Palpation: soft, no hernias and tender in the epigastrum and in the RUQ; with no rebound tenderness Skin General: no rashes or lesions noted Neuro General: CN's II-XI intact bilaterally Extrem General: normal to inspection Psych Mental Status: mental status grossly normal Attitude: cooperative Assessment and Plan Assessment and Plan (1) Cholelithiasis: Status: Acute (2) RUQ pain: Status: Acute Plan Reviewed the anatomy with the patient and discussed the procedure: laparoscopic cholecystectomy with possible cholangiograms, possible open. Review risks including but not limited to bleeding, infection, hernia, bile leak, retained gallstones requiring another procedure ERCP- Endoscopic Retrograde Cholangiopancreatography, injury to another organ (bile ducts, common bile duct, small bowel, etc.) and conversion to an open procedure. All questions were answered. Carlita Mascorro M.D. Pager: [phone] [facility] [address] [place] [address], [facility], [address] [place] [address] Office: [phone] Coding Level of Care Code Off vis,new,level 3 Diagnoses Cholelithiasis K80.20 RUQ pain R10.11 06/04/23 0934 <Electronically signed by Carlita Mascorro MD> Date Carlita Mascorro MD
[2023-06-10] MEDS: Cefazolin 2 GM in 0.9% Normal Saline (100mL Bag) 100 ML IV (07:30)
--- NOTE | 2023-06-10 07:30 | GALL_PTH ---
PATHOLOGY RESULTS PATIENT: TAYLER VALADEZ LOC: [facility] [place] U#:[id number] AGE/SX: 62/F ROOM: RE06/10/[address]: Dr. Carlita Mascorro MD : 1960 BED: DIS: 06/10/2023 SPEC #: [id number] RECD: 06/10/23 11:32 STATUS: HARSHIL JOSÉ #: [id number] PAMELA: 06/10/23 07:[address]: Carlita Mascorro DEPT: SURGICAL PATHOLOGY RECD BY: Val Galvan ENTERED: 06/10/23 11:33 SP TYPE: LILY KINSEY DR: Jesus Poon, HELPER [employer] FINISHER-[employer] Tissues: Gallbladder, NOS Procedures: Surgery Specimen Level III HEADER OPERATION: Laparoscopic, Cholecystectomy PRE-OP DIAGNOSIS: Cholelithiasis, Right upper quadrant pain TISSUE SUBMITTED: Gallbladder MICROSCOPIC DIAGNOSIS Gallbladder, cholecystectomy: Chronic cholecystitis and cholelithiasis. JESSI/mr 06/11/2023 MICROSCOPIC DESCRIPTION Slides are reviewed. GROSS DESCRIPTION Received is one container labeled with the patient's name and designated gallbladder. The specimen consists of a gallbladder measuring 9.0 cm in length and up to 4.0 cm in diameter. The external surface is pink-simmons, smooth and glistening for the most part. Focally it is granular, hemorrhagic and contains cautery artifact. The gallbladder contains green-yellow mucoid bile and multiple mulberry light-yellow stones measuring in aggregate 4.5 x 5.0 x 1.0 cm and 0.1 cm to 1.0cm in greatest dimension. The mucosa is bile-stained and without any mass lesions. The gallbladder wall measures up to 0.2cm in thickness. Compressor Battery Pellets sections from the gallbladder and the cystic duct are submitted in one cassette. / JESSI: 06/10/23 TC:3 CPT: 91573
[2023-06-10] MEDS: Bupivacaine Mpf 0.5% 30 ML VIAL (08:07)
--- NOTE | 2023-06-10 08:08 | PCM.OPRPT ---
Report of Operation Date of Procedure: 06/10/23 Pre-Operative Diagnosis: Cholelithiasis, right upper quadrant pain Post-Operative Diagnosis: Same Surgery/Procedure Performed:: Laparoscopic cholecystectomy Surgeon: Carlita Mascorro detective bureau chief: Jaiden Riggs Type of Anesthesia: General/Supplemental Anesthesiologist: Shaw Chambers Special Medications: Ancef 2 g IV x 1 Specimen's removed: Hold gallbladder Estimated Blood Loss (mL): 10cc Description of Procedure: Indications: this is a 62 year-old female who developed abdominal pain/nausea/vomiting and on workup was found to have right upper quadrant pain, cholelithiasis, with a normal common bile duct. Laparoscopic cholecystectomy was elected. Description procedure: The patient was placed on operating table in supine position. A timeout was completed verifying correct patient, procedure, site, position and special equipment prior to beginning procedure. General Anesthesia was induced. The abdomen was prepped and draped in usual sterile fashion. An incision was made in the natural skin line above the umbilicus. The fascia was elevated and incised. The peritoneum was elevated and incised. Entry into the peritoneum was confirmed visually and no bowel was noted in the vicinity of the incision. Peralta trocar was placed. The abdomen was insufflated with carbon dioxide to a pressure of 12-15 mmHg. Patient tolerated insufflation well. The laparoscope was then inserted and abdomen inspected. No injuries from initial trocar placement were noted. Additional trochars were then inserted in the following locations 5 mm trocar in the epigastrium and 2 more 5 mm trochars along the right costal margin. The abdomen was inspected no abnormalities were found. The table is placed in reverse Trendelenburg position with the right side up. The dome of the gallbladder was grasped with atraumatic grasper passed through the lateral port and retracted over the dome of the liver. Infundibulum was then grasped with atraumatic grasper through the midclavicular port and retracted to the right lower quadrant. This maneuver exposed Calot's triangle. The peritoneum overlying the gallbladder infundibulum was then incised and cystic duct and artery identified and circumferentially dissected. Pederson catheter attempted to be used for cholangiograms-aborted. The cystic duct and artery were then doubly clipped and divided close to the gallbladder. The gallbladder then dissected from its peritoneal attachments by electrocautery. Hemostasis was checked and the gallbladder and contained stones were removed using the endoscopic retrieval bag through the umbilical port. The gallbladder is passed off table as specimen. The gallbladder fossa was irrigated with saline and hemostasis obtained. There is no evidence of bleeding from the gallbladder fossa or cystic artery leakage of bile from the cystic duct stump. Secondary trochars removed under direct vision. No bleeding was noted the trocar sites. The laparoscope was withdrawn and umbilical trocar removed. The abdomen was allowed to collapse. The fascia of the 12 mm trocar was closed with a [id number] 0 Vicryl suture. The skin was closed with sutures of 4-0 Monocryl and Steri-Strips. The patient was extubated. The patient tolerated procedure well and was taken to the postanesthesia care unit in stable condition. Complications none
--- NOTE | 2023-06-10 08:10 | EX.PCM.DISCH ---
Discharge Instructions Diet Discharge Diet: Light diet - advance as tolerated Activity Discharge Activity: May Not Drive (while taking narcotic pain medications.) May shower in (days): 1 Lifting Restrictions: no lifting >20 lbs x 2 wks, no strenuous exercise for 4 wks Dressing / Incision Call your doctor if your incision/area has: Continuous Slow Oozing, Sudden Increased Bleeding, Increased Pain/ Swelling, Increased Redness, Foul Smelling Discharge and Swelling at the incision site Call your doctor if you observe: Fever of 101 or Higher Remove Dressing in: 2 days Cleanse incision/area with: Soap & Water Additional Dressing/Incision Instructions:: Steri-Strips will fall off in 7 to 10 days, if they do not fall off okay to remove after 10 days. Follow Up Care Please Follow Up With: Carlita Mascorro MD When: Call the office for a follow-up appointment 2 weeks; after 5 PM and on the weekends call [phone] with any concerns. Test Results: Test results from this visit will be discussed in further detail at your follow-up appointment, if applicable. Discharge Plan Admission Attending Provider: Carlita Mascorro Primary Care Provider: Jesus Poon NP Discharge Orders/Prescriptions Prescriptions: New oxycodone-acetaminophen 5-325 mg tablet 1 - 2 tab PO Q6H PRN (Reason: pain) 3 Days Qty: 14 0RF Continued potassium citrate 10 mEq (1,080 mg) tablet extended release 10 meq PO DAILY potassium chloride 10 mEq capsule, extended release 10 meq PO BID hydrochlorothiazide 25 mg tablet 25 mg PO DAILY pantoprazole 20 mg tablet,delayed release (DR/EC) 20 mg PO DAILY Patient Comments: take 1 tablet by mouth once daily Referrals / Follow Up: Jesus Poon NP, BUSINESS SERVICES SALES REPRESENTATIVE-C [Primary Care Provider] - Disposition Disposition (needs filled in before D/C Order can be placed): Home, Self Care
== END 2023-06-10 11:35 | disposition home or self-care (01) ==
LOC: SDC 05:45 → AC 05:45
PROVIDERS: Anesthesiology; PCP Nurse Practitioner Primary Care; Referring Provider Surgery; Visit Provider Surgery
PROC: (CPT 47610; principal; 2023-06-10 07:10)
DX: K80.10 Calculus of gallbladder with chronic cholecystitis without obstruction (principal)
CPT/HCPCS: 47562; 00790; 36415; 80048; 88304; 93005; J7120; J2405